=== PATIENT | female | born 1970 | race Caucasian/White ===

== ENCOUNTER 2018-10-08 08:55 | Outpatient (CLI) | payer OTHER | END 2018-10-08 23:59 | disposition home or self-care (01) | LOC: CFH 08:55 | PROVIDERS: ATTEND Surgery | DX: N61.0 Mastitis without abscess (principal) | CPT/HCPCS: 76642 ==

== ENCOUNTER → 2019-01-12 | Outpatient (CLI) | payer OTHER ==
[~2019-01-12] MED LIST: CEPH-368 PO; LIDOCAINE 1%, 20ML ONE; LIDOCAINE 1%-EPI 1:100K, 20ML ONE; SODIUM BICARBONATE 4.0%, 5ML ONE
== END | disposition home or self-care (01) ==
LOC: CFH 12:15
PROVIDERS: ATTEND Surgery
DX: N61.1 Abscess of the breast and nipple (principal)
CPT/HCPCS: 10160; 76642; 87015; 87070; 87075; 87102; 87116; 87205; 87206; J3490; 10030; 76942

== ENCOUNTER → 2019-09-20 | Outpatient (CLI) | payer OTHER ==
[~2019-09-20] MED LIST changes: -LIDOCAINE 1%, 20ML ONE; -LIDOCAINE 1%-EPI 1:100K, 20ML ONE; -SODIUM BICARBONATE 4.0%, 5ML ONE
== END | disposition home or self-care (01) ==
LOC: CFH 07:14
PROVIDERS: ATTEND Surgery
DX: R92.8 Other abnormal and inconclusive findings on diagnostic imaging of breast (principal); N63.41 Unspecified lump in right breast, subareolar
CPT/HCPCS: 76642; 77066; G0279

== ENCOUNTER 2019-10-12 09:59 | Outpatient (CLI) | payer OTHER ==
[2019-10-12] MEDS ORDERED: SODIUM BICARBONATE 4.2%, 5ML ONE (15:25)
[2019-10-12] MEDS ORDERED: LIDOCAINE 1%-EPI 1:100K, 20ML ONE (15:25)
[2019-10-12] MEDS ORDERED: LIDOCAINE 1%, 20ML ONE (15:25)
[2019-10-20] MEDS ORDERED: NO MEDS (08:50)
== END 2019-10-12 23:59 | disposition home or self-care (01) ==
LOC: CFH 09:59
PROVIDERS: ATTEND Surgery
DX: N61.1 Abscess of the breast and nipple (principal); J45.909 Unspecified asthma, uncomplicated; E66.3 Overweight; Z88.0 Allergy status to penicillin; Z88.1 Allergy status to other antibiotic agents; Z88.2 Allergy status to sulfonamides; Z72.89 Other problems related to lifestyle
CPT/HCPCS: 19020; 76942; 87015; 87070; 87075; 87102; 87116; 87205; 87206; J3490; 19000